=== PATIENT | female | born 1990 ===

== ENCOUNTER 2018-08-08 00:57 | Emergency (ER) | payer OTHER ==
--- NOTE | 2018-08-08 01:24 | ED ---
GI/ HPI - HPI Summary HPI Summary: This patient is a 28 year old F presenting to [facility] accompanied by her with a chief complaint of dysuria that began 2 days ago. The patient rates the pain 8/10 in severity. Patient denies fever, n/v/d, and back pain. - History of Current Complaint Chief Complaint: EDUrogenitalProblems Time Seen by Provider: 08/08/18 01:11 Stated Complaint: ABD PAIN Hx Obtained From: Patient Onset/Duration: Started Days Ago - 2, Still Present, Worse Since Timing: Constant Severity: Moderate Current Severity: Severe Pain Intensity: 8 Associated Signs and Symptoms: Positive: Negative - fever - Allergy/Home Medications Allergies/Adverse Reactions: Allergies Allergy/AdvReac Type Severity Reaction Status Date / Time No Known Allergies Allergy Verified 08/08/18 01:03 PMH/Surg Hx/FS Hx/Imm Hx Cardiovascular History: Denies: Hx Congestive Heart Failure, Hx Hypotension, Hx Myocardial Infarction Respiratory History: Denies: Hx Pulmonary Embolism GI History: Denies: Hx Diverticulosis Neurological History: Denies: Hx Transient Ischemic Attacks (TIA) Infectious Disease History: No Infectious Disease History: Denies: Traveled Outside the [place] in Last 30 Days - Family History Known Family History: Positive: Cardiac Disease, Hypertension - Social History Lives: With Family Alcohol Use: Rare Hx Substance Use: No Substance Use Type: Reports: None Hx Tobacco Use: No Smoking Status (MU): Never Smoked Tobacco Review of Systems Negative: Fever Negative: Vomiting, Diarrhea, Nausea Positive: dysuria Musculoskeletal: Negative - back pain All Other Systems Reviewed And Are Negative: Yes Physical Exam - Summary Physical Exam Summary: VITAL SIGNS: Reviewed. GENERAL: Patient is a well-developed and nourished female who is lying comfortable in the stretcher. Patient is not in any acute respiratory distress. HEAD AND FACE: No signs of trauma. No ecchymosis, hematomas or skull depressions. No sinus tenderness. EYES: PERRLA, EOMI x 2, No injected conjunctiva, no nystagmus. EARS: Hearing grossly intact. Ear canals and tympanic membranes are within normal limits. MOUTH: Oropharynx within normal limits. NECK: Supple, trachea is midline, no adenopathy, no JVD, no carotid bruit, no c- spine tenderness, neck with full ROM. CHEST: Symmetric, no tenderness at palpation LUNGS: Clear to auscultation bilaterally. No wheezing or crackles. CVS: Regular rate and rhythm, S1 and S2 present, no murmurs or gallops appreciated. ABDOMEN: Soft, non-tender. No signs of distention. No rebound no guarding, and no masses palpated. Bowel sounds are normal. EXTREMITIES: FROM in all major joints, no edema, no cyanosis or clubbing. NEURO: Alert and oriented x 3. No acute neurological deficits. Speech is normal and follows commands. SKIN: Dry and warm Triage Information Reviewed: Yes Vital Signs On Initial Exam: Initial Vitals Temp Pulse Resp BP Pulse Ox 97.3 F 79 16 133/85 100 08/08/18 00:59 08/08/18 00:59 08/08/18 00:59 08/08/18 00:59 08/08/18 00:59 Vital Signs Reviewed: Yes Diagnostics - Vital Signs Vital Signs Temp Pulse Resp BP Pulse Ox 08/08/18 00:59 97.3 F 79 16 133/85 100 - Laboratory Lab Statement: Any lab studies that have been ordered have been reviewed, and results considered in the medical decision making process. GIGU Course/Dx - Course Assessment/Plan: This patient is a 28 year old F presenting to [facility] accompanied by her with a chief complaint of dysuria that began 2 days ago. The patient rates the pain 8/10 in severity. Patient denies fever, n/v/d, and back pain. UA was positive for UTI. In the ED course the patient was given pyridium and bactrim. Patient will be discharged with prescription for pyridium and bactrim and follow up from PCP. The patient is agreeable with this plan. - Diagnoses Provider Diagnoses: UTI (urinary tract infection) Discharge - Sign-Out/Discharge Documenting (check all that apply): Patient Departure - Discharge Plan Condition: Stable Disposition: HOME Prescriptions: Phenazopyridine TAB* [Pyridium 100 mg TAB*] 100 mg PO TID PRN #7 tab PRN Reason: Pain Sulfamethox/Trimethoprim DS* [Bactrim DS 800/160 TAB*] 1 tab PO BID #14 tab Patient Education Materials: Urinary Tract Infection in Women (ED) Referrals: Sendy Garcia MD [Primary Care Provider] - 3 Days Additional Instructions: RETURN TO THE EMERGENCY DEPARTMENT FOR CHANGING OR WORSENING SYMPTOMS - Attestation Statements Document Initiated by Scribe: Yes Documenting Scribe: Kwabena Lou Provider For Whom Scribe is Documenting (Include Credential): Jeannine Osborn MD Scribe Attestation: I, Kwabena Lou , scribed for Jeannine Osborn MD on 08/08/18 at 0147. Status of Scribe Document: Ready
[2018-08-08 01:40] LABS: Urine Appearance Cloudy; Urine Bacteria 1+ (Absent); Urine Bilirubin Negative (Negative); Urine Blood 3+ (Negative); Urine Color Yellow; Urine Glucose Negative (Negative); Urine Ketones Negative (Negative); Urine Nitrite Negative (Negative); Urine Protein Negative (Negative); Urine Red Blood Cell 3+(>10/hpf) (Absent); Urine Specific Gravity 1.011 (1.010-1.030); Urine Urobilinogen Negative (Negative); Urine White Blood Cell 3+(>20/hpf) (Absent)
[2018-08-08] MEDS ORDERED: Phenazopyridine TAB* 100 MG PO ONE (01:42)
[2018-08-08] MEDS ORDERED: Sulfamethox/Trimethoprim DS 800/160* TAB PO ONE (01:42)
--- NOTE | 2018-08-10 06:56 | ED ---
Progress - Progress Note Progress Note: Patient's preliminary urine cx reveals 75-100,000 Enterobacter aerogenes. Patient was started on Bactrim. Final results pending. Course/Dx - Diagnoses Provider Diagnoses: UTI (urinary tract infection) Discharge - Sign-Out/Discharge Documenting (check all that apply): Post-Discharge Follow Up - Discharge Plan Condition: Stable Disposition: HOME Prescriptions: Phenazopyridine TAB* [Pyridium 100 mg TAB*] 100 mg PO TID PRN #7 tab PRN Reason: Pain Sulfamethox/Trimethoprim DS* [Bactrim DS 800/160 TAB*] 1 tab PO BID #14 tab Patient Education Materials: Urinary Tract Infection in Women (ED) Referrals: Sendy Garcia MD [Primary Care Provider] - 3 Days Additional Instructions: RETURN TO THE EMERGENCY DEPARTMENT FOR CHANGING OR WORSENING SYMPTOMS - Billing Disposition and Condition Condition: STABLE Disposition: Home
--- NOTE | 2018-08-11 11:11 | ED ---
Progress - Progress Note Progress Note: Patient's preliminary urine cx reveals 75-100,000 Enterobacter aerogenes. Patient was started on Bactrim. Final results pending. UPDATE: Organism sensitive to Bactrim. No change in treatment at this time. Course/Dx - Diagnoses Provider Diagnoses: UTI (urinary tract infection) Discharge - Sign-Out/Discharge Documenting (check all that apply): Post-Discharge Follow Up - Discharge Plan Condition: Stable Disposition: HOME Prescriptions: Phenazopyridine TAB* [Pyridium 100 mg TAB*] 100 mg PO TID PRN #7 tab PRN Reason: Pain Sulfamethox/Trimethoprim DS* [Bactrim DS 800/160 TAB*] 1 tab PO BID #14 tab Patient Education Materials: Urinary Tract Infection in Women (ED) Referrals: Sendy Garcia MD [Primary Care Provider] - 3 Days Additional Instructions: RETURN TO THE EMERGENCY DEPARTMENT FOR CHANGING OR WORSENING SYMPTOMS - Billing Disposition and Condition Condition: STABLE Disposition: Home
== END 2018-08-08 01:53 | disposition home or self-care (01) ==
LOC: ED 00:57
DX: N39.0 Urinary tract infection, site not specified (principal); B96.89 Other specified bacterial agents as the cause of diseases classified elsewhere
CPT/HCPCS: 81003; 81015; 87077; 87086; 87186; 99282; A9270-GY

== ENCOUNTER 2018-11-08 13:57 | Emergency (ER) | payer OTHER ==
[2018-11-08 15:02] VITALS: BP 124/93
--- NOTE | 2018-11-08 16:17 | UC ---
General HPI - HPI Summary HPI Summary: 28-year-old female presents for an accidental ingestion of a dishwashing liquid. States they use a dishwashing detergent that they get in bulk at a local grocery store and it was dispensed into a all water bottle. The discharge and is clear and patient did not realize that the bottle contained the dishwashing liquid and swallowed one small mouthful before realizing what it was she had ingested. Complains of some mild nausea and has vomited a couple of times but otherwise is without complaints. Denies sore throat, mouth pain, difficulty swallowing, difficulty breathing, chest pain, shortness of breath, abdominal pain, or hematemesis. - History of Current Complaint Chief Complaint: UCGeneralIllness Stated Complaint: SWALLOWED DISH SOAP Time Seen by Provider: 11/08/18 16:10 Hx Obtained From: Patient Hx Last Menstrual Period: 09/30/18 Pain Intensity: 0 - Allergy/Home Medications Allergies/Adverse Reactions: Allergies Allergy/AdvReac Type Severity Reaction Status Date / Time nut - unspecified Allergy Unknown Verified 11/08/18 15:02 Reaction Details PMH/Surg Hx/FS Hx/Imm Hx Previously Healthy: Yes - Denies significant PMH - Surgical History Surgical History: None - Family History Known Family History: Positive: Cardiac Disease, Hypertension - Social History Occupation: Employed Full-time Lives: With Family Alcohol Use: None Substance Use Type: None Smoking Status (MU): Never Smoked Tobacco Review of Systems All Other Systems Reviewed And Are Negative: Yes Constitutional: Positive: Negative Skin: Positive: Negative Respiratory: Negative: Shortness Of Breath, Cough Cardiovascular: Negative: Palpitations, Chest Pain Gastrointestinal: Negative: Abdominal Pain, Vomiting, Diarrhea, Nausea Genitourinary: Positive: Negative Musculoskeletal: Positive: Negative Neurological: Positive: Negative Is Patient Immunocompromised?: No Physical Exam - Summary Physical Exam Summary: GENERAL APPEARANCE: Well developed, well nourished, alert and cooperative, and appears to be in no acute distress. THROAT: Pharynx normal No tonsilar inflammation, swelling, exudate, or lesions. Uvula midline. Oral cavity normal. Teeth and gingiva in good general condition. NECK: Neck supple, non-tender without lymphadenopathy. CARDIAC: Normal S1 and S2. No S3, S4 or murmurs. Rhythm is regular. There is no peripheral edema, cyanosis or pallor. Extremities are warm and well perfused. Capillary refill is less than 2 seconds. Peripheral pulses intact. LUNGS: Clear to auscultation without rales, rhonchi, wheezing or diminished breath sounds. ABDOMEN: Positive bowel sounds. Soft, nondistended, nontender. No guarding or rebound. No masses or hepatosplenomegally. MUSKULOSKELETAL: ROM intact to all extremities. No joint erythema or tenderness. Normal muscular development. Normal gait. SKIN: Skin normal color, texture and turgor with no lesions or eruptions. Triage Information Reviewed: Yes Vital Signs: Initial Vital Signs Temp 97.7 F 11/08/18 14:57 Pulse 85 11/08/18 14:57 Resp 16 11/08/18 14:57 BP 124/93 11/08/18 14:57 Pulse Ox 100 11/08/18 14:57 Vital Signs Reviewed: Yes Course/Dx - Course Course Of Treatment: 28-year-old female presents for an accidental ingestion of a dishwashing liquid. States they use a dishwashing detergent that they get in bulk at a local grocery store and it was dispensed into a all water bottle. The discharge and is clear and patient did not realize that the bottle contained the dishwashing liquid and swallowed one small mouthful before realizing what it was she had ingested. Complains of some mild nausea and has vomited a couple of times but otherwise is without complaints. Denies sore throat, mouth pain, difficulty swallowing, difficulty breathing, chest pain, shortness of breath, abdominal pain, or hematemesis. Afebrile. Vital signs stable. Exam was overall unremarkable. Patient did state that there was a chance of therefore a urine was performed and was negative. Nursing was able to contact the local grocery store and identified the dishwashing detergent as BIO-pac dishwashing liquid. Poison control was notified who recommends observing the patient for a period of time however no other treatment is needed at this time as this is not a hazardous material and tends to cause GI irritation if consuming large amounts. Patient spent a total of 2 1/ 2 hours in the clinic with no complications. She is to follow up with her PCP in 3 days. Anticipatory guidance and warning symptoms were reviewed with patient. Verbalizes understanding and agrees with POC. - Differential Dx - Multi-Symptom Differential Diagnoses: Aspiration, Other - Accidental ingestion - Diagnoses Provider Diagnosis: Accidental ingestion of substance Discharge - Sign-Out/Discharge Documenting (check all that apply): Patient Departure All imaging exams completed and their final reports reviewed: No Studies - Discharge Plan Condition: Stable Disposition: HOME Referrals: Sendy Garcia MD [Primary Care Provider] - 3 Days Additional Instructions: We contacted poison control regarding the dish detergent you accidentally ingested and they are not recommending any treatment at this time as this product is not hazardous and typically will only cause some gastrointestinal irritation if consumed in large quantities. You may contact poison control at [phone] if you have any further questions. Drink plenty of fluids. You may resume a normal diet. Follow up with your primary care provider in 3 days. Seek immediate medical attention in the emergency room if you develop weakness, dizziness, chest pain, shortness of breath, severe abdominal pain, persistent vomiting, blood in your vomit or bowel movement, or any worsening of symptoms. - Billing Disposition and Condition Condition: STABLE Disposition: Home
== END 2018-11-08 16:30 | disposition home or self-care (01) ==
LOC: UCEAST 13:57
DX: T18.0XXA Foreign body in mouth, initial encounter (principal); T55.0X1A Toxic effect of soaps, accidental (unintentional), initial encounter; Y92.009 Unspecified place in unspecified non-institutional (private) residence as the place of occurrence of the external cause
CPT/HCPCS: 84702; 99211; G0463